=== PATIENT | male | born 1955 | race African-American/Black ===

== ENCOUNTER 2017-08-14 05:40 | Inpatient (IN) | payer BC ==
[2017-08-11 14:04] LABS: HEMATOCRIT 53.7 % (42.0-52.0); HEMOGLOBIN 17.7 gm/dL (14.0-18.0); MCH 28.8 pg (26.0-34.0); MCV 87.3 fL (80.0-100.0); RBC 6.15 mil/uL (4.50-6.00); RDW 15.8 % (10.5-14.5); WBC 8.7 thou/uL (4.0-11.0)
[2017-08-11 14:05] LABS: URINE BILIRUBIN NEGATIVE (Negative); URINE BLOOD NEGATIVE (Negative); URINE CLARITY CLEAR; URINE COLOR YELLOW; URINE GLUCOSE-RANDOM* NEGATIVE (Negative); URINE KETONES NEGATIVE (Negative); URINE LEUKOCYTES-REFLEX NEGATIVE (Negative); URINE NITRITE-REFLEX NEGATIVE (Negative); URINE PROTEIN (DIPSTICK) 1+ (Negative); URINE UROBILINOGEN 0.2 E.U./dl (0.2-1.0)
[2017-08-11 14:11] LABS: SQUAMOUS None Seen /LPF (0-3)
[2017-08-11 14:12] LABS: BACTERIA-REFLEX None Seen /HPF (None Seen); CASTS None Seen /LPF (None Seen); CRYSTALS None Seen /LPF (None Seen); URINE RBC None Seen /HPF (0-2); URINE WBC-REFLEX None Seen /HPF (0-5)
[2017-08-11 14:22] LABS: INR 1.1; PROTIME 11.3 Seconds (9.3-11.4)
[2017-08-11 14:27] LABS: ALBUMIN 3.6 g/dL (3.4-5.0); CALCIUM 8.9 mg/dL (8.5-10.1); CREATININE 1.6 mg/dL (0.7-1.3); TOTAL BILIRUBIN 0.7 mg/dL (<0.1-1.0); TOTAL PROTEIN 6.6 g/dL (6.4-8.2)
[~2017-08-14] VITALS: Ht 172.7 cm; Wt 114.8 kg
[2017-08-14] VITALS (7 sets, daily range): BP systolic 141–161; BP diastolic 91–107
--- NOTE | ~2017-08-14 | O ---
[facility] [place] [address] OPERATIVE REPORT Name: NARDA WYNN Room #: 412-P [facility] M.R.#: [id number] Admission: 08/14/17 Attend Phys: Mayank Jimenez MD Discharge: 08/16/17 Date of : 53 Report #: [id number] THIS REPORT FOR: //name// CC: GARY SAHU Physician staff Mayank Jimenez DATE OF SERVICE: 08/14/2017 PREOPERATIVE DIAGNOSIS: Left knee osteoarthritis. POSTOPERATIVE DIAGNOSIS: Left knee osteoarthritis. PROCEDURE: Left total knee arthroplasty. SURGEON: Mayank Jimenez MD. TRIAGE SPECIALIST: Lizeth Gil PA-C. INDICATIONS FOR ASSISTANCE: Throughout the case extensive retraction and manipulation of the knee was required. This was afforded to me by my medical billing assistant. ANESTHESIA: LMA with an adductor canal block. IMPLANTS: Otoole [employer] Nephew size 6 Legion Oxinium posterior stabilized femur, size 5 tibia, size 35 patella and a size 10 polyethylene. TOURNIQUET TIME: 60 minutes. ESTIMATED BLOOD LOSS: 50 mL. COMPLICATIONS: None. SPECIMEN: None. CONDITION UPON LEAVING OR: Stable. INDICATION FOR PROCEDURE: The patient is a 62-year-old gentleman with left knee osteoarthritis. He had failed conservative treatment for this and after discussion with him, he elected for left total knee arthroplasty. DESCRIPTION OF PROCEDURE: Risks, benefits, alternatives, complications were discussed in detail with the patient including but not limited to risk of anesthesia, risk of damage to nerves, arteries, blood vessels, risk for infection, bleeding, risk for continued knee pain and need for reoperation. Informed consent was obtained from the patient. Left knee was appropriately [facility] [address] [place] [address] OPERATIVE REPORT Name: NARDA WYNN Room #: 412-P [facility].#: [id number] Admission: 08/14/17 Attend Phys: Mayank Jimenez MD Discharge: 08/16/17 Date of : 53 Report #: [id number] marked in the preoperative holding area. IV Ancef was given for preoperative antibiotics. He was brought to the operating room and placed in the supine position on the operating room table. LMA anesthesia was induced without complication. Tourniquet was placed on the left thigh. Left lower extremity was prepped and draped in normal sterile fashion. Timeout was performed properly identifying the patient and procedure as well as instrumentation. All in the operating room were in agreement. Left lower extremity was exsanguinated, tourniquet was inflated. Tourniquet time was 60 minutes. Standard midline approach to knee was made with 10 blade through the skin. Dissection was taken down sharply through the fascia and deep flaps were developed medially and laterally. Fresh 10 blade was used to make a medial parapatellar arthrotomy and the knee was inspected. There was extensive tricompartmental osteoarthritis with significant synovitis of the knee itself. Anterior horns of the meniscus were removed sharply. A synovectomy was performed with Bovie cautery. The patella was everted and knee was flexed. ACL and PCL were removed sharply. Drill was used to gain access to the canal of the femur and distal femoral cutting block was pinned in place. Distal femoral cut was made. The femur was sized, found to be of size 6. A 4-in-1 cutting block was placed anterior, posterior chamfer cuts were made. Knee was hyperflexed and tibia was subluxated anteriorly. Drill was used to gain access to the canal of the tibia and intramedullary alignment was used. Tibial resection was based off the lateral plateau, and tibial resection was made. Posterior osteophytes were removed from the femur. The knee was then checked in flexion and extension to check the gaps and found to have good balance in flexion, extension both medially and laterally. After this, the tibia was sized, found to be a size 5. Size 5 tibial trial was placed, and the tibial punch was performed for the stemmed tibial insert. The size 6 femoral trial was placed, and the box cut was made. Post was placed and the knee was trialed with a size 9 and then size 10 polyethylene. The knee had a better balance and fit with size 10. 5 mm was taken off the posterior surface of the patella and a size 35 patella button trial was placed. Knee was taken through range of motion and found to be stable and have good balance in flexion and extension both medially and laterally. Trial components were removed. Bony ends were thoroughly irrigated with normal saline. A final size 5 tibia, size 6 Legion Oxinium posterior stabilized femur and a size 35 patella were cemented in place using standard cementation techniques. While the cement cured, a periarticular injection consisting of morphine, ropivacaine, epinephrine and Toradol was placed around the knee joint. After the cement cured, the tourniquet was deflated. Hemostasis was obtained with Bovie cautery. Final size 10 polyethylene was placed. A gram of vancomycin was placed deep in the joint. The fascia was closed with 0 Vicryl, skin was closed with 2-0 Vicryl, 3-0 Monocryl. Dermabond and a NOA dressing [address] [address] OPERATIVE REPORT Name: NARDA WYNN Room #: 412-P [facility] M.R.#: [id number] Admission: 08/14/17 Attend Phys: Mayank Jimenez MD Discharge: 08/16/17 Date of : 53 Report #: [id number] were applied. The patient tolerated this procedure well and went to recovery room under care of Anesthesia postoperatively. <ELECTRONICALLY SIGNED> By: Mayank Jimenez MD 09/09/17 0820 [id number] Mayank Jimenez MD /nt
[~2017-08-14 05:40] MED LIST: ASPIR 8181 MG PO; CARDIZEM CD120 MG PO; COREG25 MG PO; ELIQUIS5 MG PO; ENTRESTO 97 MG1 EACH PO; FUROSEMIDE 20 M20 MG PO; HYDRALAZINE 5050 MG PO; KLOR-CON 1010 MEQ PO; LIPITOR10 MG PO; PACERONE 200 M200 M1 PO; VITAMIN D50000 UNIT PO
[2017-08-15] VITALS: BP 124/85
[2017-08-15 03:06] LABS: HEMATOCRIT 47.5 % (42.0-52.0); HEMOGLOBIN 15.5 gm/dL (14.0-18.0); MCH 28.7 pg (26.0-34.0); MCHC 32.6 g/dL (28.0-37.0); MCV 87.9 fL (80.0-100.0); RBC 5.4 mil/uL (4.50-6.00); RDW 16.2 % (10.5-14.5); WBC 13.5 thou/uL (4.0-11.0)
[2017-08-15 05:00] VITALS: BP 124/87
[2017-08-15 08:25] VITALS: BP 127/90
[2017-08-15 13:27] VITALS: BP 136/89
[2017-08-15 16:37] VITALS: BP 131/75
[2017-08-15 20:00] VITALS: BP 112/71
[2017-08-16 04:57] VITALS: BP 125/91
[2017-08-16 05:42] LABS: HEMATOCRIT 41.8 % (42.0-52.0); HEMOGLOBIN 13.7 gm/dL (14.0-18.0); MCH 28.9 pg (26.0-34.0); MCHC 32.7 g/dL (28.0-37.0); MCV 88.4 fL (80.0-100.0); RBC 4.73 mil/uL (4.50-6.00); RDW 16.2 % (10.5-14.5); WBC 9.6 thou/uL (4.0-11.0)
[2017-08-16 08:00] VITALS: BP 130/97
[2017-08-16 13:19] VITALS: BP 130/97
[2017-08-25] MEDS ORDERED: MS CONTIN15 MG PO (15:01)
[2017-08-25] MEDS ORDERED: OXYCODONE-ACET1 EACH PO (15:02)
== END 2017-08-16 16:27 | disposition home or self-care (01) | DRG 470 ==
LOC: TBA 05:40 → 4N 05:40 → PRE 10:45 → 4N 13:43 → PRE 15:11 → 4N 08-16 16:27
PROVIDERS: Orthopaedic Surgery
PROC: 0SRD0J9 Replacement of Left Knee Joint with Synthetic Substitute, Cemented, Open Approach (ICD-10-PCS; principal; 2017-08-14)
DX: M17.12 Unilateral primary osteoarthritis, left knee (principal); Z79.899 Other long term (current) drug therapy
CPT/HCPCS: 10790; 50010; 50101; 50415; 50915; 50954; 51130; 51225; 51771; 53000; 53078; 53365; 54118; 56527; 56528; 57095; 62110; 62900; 64042; 70005

== ENCOUNTER 2017-08-26 05:17 | Day surgery (SDC) | payer BC ==
[2017-08-26] VITALS (7 sets, daily range): BP systolic 115–135; BP diastolic 77–87
[~2017-08-26] VITALS: Ht 172.7 cm; Wt 108.0 kg
--- NOTE | ~2017-08-26 | O ---
[facility] [place] [address] OPERATIVE REPORT Name: NARDA WYNN Room #: DEP [facility] [place]#: [id number] Admission: 08/26/17 Attend Phys: Mayank Jimenez MD Discharge: 08/27/17 Date of : 53 Report #: [id number] THIS REPORT FOR: //name// CC: Physician staff Mayank Jimenez DATE OF SERVICE: 08/26/2017 PREOPERATIVE DIAGNOSIS: Left knee postop hematoma, status post total knee arthroplasty. POSTOPERATIVE DIAGNOSIS: Left knee postop hematoma, status post total knee arthroplasty. PROCEDURE: Evacuation of left knee hematoma. SURGEON: Mayank Jimenez MD ANESTHESIA: General. ESTIMATED BLOOD LOSS: 50 mL COMPLICATIONS: None. SPECIMENS: None. CONDITION UPON LEAVING THE OPERATING ROOM: Stable. INDICATIONS FOR PROCEDURE: The patient is a 62-year-old gentleman who is about 12 days out from a left total knee arthroplasty. He has been on Eliquis secondary to cardiac issues, but has had persistent bleeding and drainage from his incision. It was felt that he had a postoperative hematoma and after discussion with him, we elected for evacuation of the left knee hematoma. DESCRIPTION OF PROCEDURE: Risks, benefits, alternatives, complications were discussed in detail with the patient including but not limited to risk of anesthesia; risk of damage to nerves, arteries, blood vessels; risk for infection; bleeding; risk for continued knee pain; need for reoperation. Informed consent was obtained from the patient. Left knee was appropriately marked in the preoperative holding area. He was brought to the operating room and placed in supine position on operating room table. IV Ancef was given for preoperative antibiotics. General anesthesia was induced without complication. Left lower extremity was prepped and draped in normal sterile fashion. Timeout was performed, properly identifying the patient and procedure as well as instrumentation. All in the operating room were in agreement. The previous incision was then opened and there was a large obvious subcutaneous hematoma [facility] [address] [place] [address] OPERATIVE REPORT Name: NARDA WYNN Room #: DEP [facility] Tequila#: [id number] Admission: 08/26/17 Attend Phys: Mayank Jimenez MD Discharge: 08/27/17 Date of : 53 Report #: [id number] that was evacuated. The fascial layer was then opened, just a small amount and hemarthrosis was evacuated also. This was then thoroughly irrigated with normal saline. Fascial layer was closed with 0 Vicryl. A deep drain was placed in the knee joint as well as in the subcutaneous . The skin was closed with 2-0 Vicryl, 2-0 nylon and a Prevena wound VAC dressing was applied. The patient tolerated this procedure well and went to the recovery room under the care of anesthesia postoperatively. <ELECTRONICALLY SIGNED> By: Mayank Jimenez MD 09/09/17 0820 [id number] Mayank Jimenez MD /ya
[~2017-08-26 05:17] MED LIST changes: +MS CONTIN15 MG PO; +OXYCODONE-ACET1 EACH PO
[2017-08-27] VITALS (7 sets, daily range): BP systolic 116–149; BP diastolic 74–95
[2017-08-27 04:59] LABS: HEMOGLOBIN 11.9 gm/dL (14.0-18.0); MCH 28.7 pg (26.0-34.0); MCHC 32.1 g/dL (28.0-37.0); MCV 89.3 fL (80.0-100.0); PLATELET COUNT 168 thou/uL (150-400); RBC 4.14 mil/uL (4.50-6.00); RDW 16.6 % (10.5-14.5); WBC 7.5 thou/uL (4.0-11.0)
[2017-08-27 05:16] LABS: CALCIUM 7.8 mg/dL (8.5-10.1); CREATININE 1.9 mg/dL (0.7-1.3); MAGNESIUM 1.9 mg/dL (1.8-2.4); POTASSIUM 3.8 mmol/L (3.5-5.1)
[2017-08-27 08:01] LABS: ABSOLUTE NEUTROPHILS 6.1 thou/uL (1.4-8.2); ANISOCYTOSIS 1+; POLYCHROMASIA OCCASIONAL
== END 2017-08-27 17:05 | disposition home or self-care (01) ==
LOC: OR 05:17 → 4N 05:17 → EDSTATUS 05:17 → TBA 05:18 → 4N 09:47 → PRE 11:39 → 4N 12:59 → PRE 15:58 → OR 08-27 17:05
PROVIDERS: Nurse Practitioner; Orthopaedic Surgery
DX: M96.840 Postprocedural hematoma of a musculoskeletal structure following a musculoskeletal system procedure (principal); I13.0 Hypertensive heart and chronic kidney disease with heart failure and stage 1 through stage 4 chronic kidney disease, or unspecified chronic kidney disease; N18.9 Chronic kidney disease, unspecified; I50.9 Heart failure, unspecified; I48.91 Unspecified atrial fibrillation; I42.9 Cardiomyopathy, unspecified; G47.33 Obstructive sleep apnea (adult) (pediatric); E78.00 Pure hypercholesterolemia, unspecified; Z96.652 Presence of left artificial knee joint; Z86.73 Personal history of transient ischemic attack (TIA), and cerebral infarction without residual deficits; Z98.890 Other specified postprocedural states; Z79.891 Long term (current) use of opiate analgesic; Z79.899 Other long term (current) drug therapy
CPT/HCPCS: 50010; 50101; 50386; 50953; 53078; 56524; 56525; 56528; 57091; 62110; 62900; 70005